=== PATIENT | female | born 1980 | race African-American/Black ===

== ENCOUNTER 2016-09-11 11:26 | Emergency (ER) | payer OTHER ==
[~2016-09-11 11:26] MED LIST: AMOXIL500 M1 PO; BACTRIM DS TABL1 TA1 PO; FLEXERIL PO; LORTAB 5/500 TA1 TA2 PO; PYRIDIUM PO; TYLENOL #3 PO; ULTRAM PO
== END 2016-09-11 12:33 | disposition home or self-care (01) ==
LOC: CED 11:26
DX: J06.9 Acute upper respiratory infection, unspecified (principal); Z20.818 Contact with and (suspected) exposure to other bacterial communicable diseases; I10 Essential (primary) hypertension; F17.210 Nicotine dependence, cigarettes, uncomplicated
CPT/HCPCS: 99282